=== PATIENT | male | born 1965 | race African-American/Black ===

== ENCOUNTER 2019-01-16 15:16 | Emergency (ER) | payer OTHER ==
[~2019-01-16] VITALS: Ht 175.3 cm; Wt 71.0 kg
[~2019-01-16 15:16] MED LIST: NOCURR
[2019-01-16 21:04] VITALS: BP 129/84
== END 2019-01-16 21:07 | disposition home or self-care (01) ==
LOC: EMS 15:17
DX: S01.112A Laceration without foreign body of left eyelid and periocular area, initial encounter (principal); F17.210 Nicotine dependence, cigarettes, uncomplicated; W10.9XXA Fall (on) (from) unspecified stairs and steps, initial encounter; Y93.89 Activity, other specified; Y92.89 Other specified places as the place of occurrence of the external cause; Y99.8 Other external cause status

== ENCOUNTER 2019-06-10 12:08 | Emergency (ER) | payer OTHER | END 2019-06-10 12:55 | disposition left against medical advice (07) | LOC: EMS 12:10 | DX: M79.646 Pain in unspecified finger(s) (principal); Z53.21 Procedure and treatment not carried out due to patient leaving prior to being seen by health care provider ==

== ENCOUNTER 2019-06-10 15:53 | Emergency (ER) | payer OTHER ==
[~2019-06-10] VITALS: Ht 175.3 cm; Wt 72.7 kg
[2019-06-10] MEDS: ACETAMINOPHEN/CODEINE 300-30 MG TABLET PO ONE (17:44)
[2019-06-10] MEDS: PERTUSS(ACELL),DIPH,TET VAC/PF 0.5 ML VIAL IM ONE (17:44)
[2019-06-10 18:11] LABS: BASOPHILS % (AUTO) 0.3 % (0.0-2.0); EOSINOPHILS % (AUTO) 0.6 % (1.0-6.0); HEMATOCRIT 43.4 % (41-53); HEMOGLOBIN 14.5 g/dL (13.5-17.5); LYMPHOCYTES # (AUTO) 0.7 K/uL (1.0-4.8); LYMPHOCYTES % (AUTO) 7.2 % (22.0-44.0); MEAN CORPUSCULAR HEMOGLOBIN 32.3 pg (26.0-34.0); MEAN CORPUSCULAR HGB CONC 33.3 G/dL (31.0-37.0); MEAN CORPUSCULAR VOLUME 97 fL (80-100); MONOCYTES # (AUTO) 0.8 K/uL (0.1-1.0); MONOCYTES % (AUTO) 8.4 % (2.0-9.0); NEUTROPHILS % (AUTO) 83.5 % (40.0-70.0); PLATELET COUNT (AUTO) 533 K/uL (150-450); RED BLOOD CELL COUNT(AUTO) 4.48 MIL/uL (4.50-5.90); RED CELL DISTRIBUTION WIDTH 15.6 % (11.5-14.5)
[2019-06-10 18:13] LABS: ANION GAP 22 mmol/L (8-16); CALCIUM, TOTAL 10.2 mg/dL (8.8-10.5); CARBON DIOXIDE 17 mmol/L (22-29); CHLORIDE 96 mmol/L (98-107); GLOMERULAR FILTR. RATE CALC > 60 mL/min (>60); GLUCOSE,RANDOM 70 mg/dL (70-110); POTASSIUM 4.2 mmol/L (3.5-5.1); SODIUM SERUM 135 mmol/L (136-145); UREA NITROGEN, BLOOD 13 mg/dL (7-18)
[2019-06-10 18:20] LABS: ALANINE AMINOTRANSFERASE 37 U/L (12-78); ALBUMIN 4.2 g/dL (3.4-5.0); ALKALINE PHOSPHATASE 110 U/L (46-116); ASPARTATE AMINOTRANSFERASE 42 U/L (15-37); BILIRUBIN,TOTAL 1.4 mg/dL (0.1-1.0); C-REACTIVE PROTEIN QUANT 6.31 mg/dL (0.00-0.30); TOTAL PROTEIN, SERUM 9.7 g/dL (6.4-8.2)
[2019-06-10] MEDS: CefTRIAXone 1 GM/DEXTROSE 50 ML IV ONE (18:38)
[2019-06-10] MEDS: RINGERS LACTATED IV ONE (18:39)
[2019-06-10] MEDS: VANCOMYCIN HCL 1.5 GM in DEXTROSE 5%-WATER 250 ML IV ONE (19:06)
[2019-06-10 19:16] LABS: ERYTHROCYTE SEDIMENTATION RATE 42 MM/HR (0-15)
[2019-06-10 21:14] VITALS: BP 151/91
== END 2019-06-10 22:08 | disposition short-term general hospital (02) ==
LOC: EMS 15:54
DX: M86.141 Other acute osteomyelitis, right hand (principal); S60.221A Contusion of right hand, initial encounter; F17.210 Nicotine dependence, cigarettes, uncomplicated; X58.XXXA Exposure to other specified factors, initial encounter; Y93.89 Activity, other specified; Y92.89 Other specified places as the place of occurrence of the external cause; Y99.8 Other external cause status
CPT/HCPCS: 36415; 73140; 80053; 83605; 85025; 85651; 86140; 87040; 90471; 90715; 96365; 96366; 96367; 99285; J0696; J3370; J7060; J7120

== ENCOUNTER 2019-10-15 10:19 | Emergency (ER) | payer OTHER ==
[~2019-10-15] VITALS: Ht 175.3 cm; Wt 72.7 kg
[2019-10-15] MEDS ORDERED: PredniSONE 20 MG TABLET PO ONE (12:30)
[2019-10-15] MEDS ORDERED: DiphenhydrAMINE HCL 25 MG CAPSULE PO ONE (12:30)
[2019-10-15] MEDS ORDERED: HYDROCORTISONE 1% 30 GM OINTMENT TP ONE (12:30)
[2019-10-15 13:48] VITALS: BP 152/94
== END 2019-10-15 13:52 | disposition home or self-care (01) ==
LOC: EMS 10:24
DX: R21 Rash and other nonspecific skin eruption (principal); F17.210 Nicotine dependence, cigarettes, uncomplicated
CPT/HCPCS: 99284; J7512